=== PATIENT | female | born 1950 | race Caucasian/White ===

== ENCOUNTER 2020-04-28 17:20 | Outpatient (CLI) | payer MEDICARE | END 2020-04-28 23:59 | disposition home or self-care (01) | LOC: LAB SPEC 17:20 | PROVIDERS: ATTEND Specialist | DX: I72.0 Aneurysm of carotid artery (principal); Z53.21 Procedure and treatment not carried out due to patient leaving prior to being seen by health care provider ==

== ENCOUNTER 2022-09-02 08:44 | Inpatient (IN) | payer MEDICARE ==
[2022-09-02] VITALS (21 sets, daily range): BP systolic 95–137; BP diastolic 56–110
[~2022-09-02] VITALS: Ht 154.9 cm; Wt 68.9 kg
[~2022-09-02 08:44] MED LIST: BUPIVAcaine/PF 2.5 mg/ml (0.25%) 30ml vial ONE; CHOL20004 PO; DULO60CA65 PO; ESOM40CA49 PO; LIDOcaine 1% 30ml preserv. free vial ONE; RAMI5CAP65 PO; ceFAZolin inj. 2,000 MG in dextrose 5%-water 100 ML IV ONE; famotidine 20mg tablet PO ONE
[2022-09-02] MEDS: ringers solution, lacted 1,000 ML IV SCH ×3 (11:43→18:23)
[2022-09-02] MEDS ORDERED: ondansetron/PF 4mg/2ml inj ONE (13:09)
[2022-09-02] MEDS ORDERED: glycopyrrolate 0.2mg/ml inj ONE (13:09)
[2022-09-02] MEDS ORDERED: dexamethasone sod phosphate 10mg/ml inj ONE (13:09)
[2022-09-02] MEDS ORDERED: neostigmine methylsulfate 1 MG/ML 10ml vial ONE (13:09)
[2022-09-02] MEDS ORDERED: sevoflurane 250ml liquid IH ONE (13:09)
[2022-09-02] MEDS ORDERED: midazolam 1 mg/ML 2ml injection ONE (13:20)
[2022-09-02] MEDS ORDERED: fentaNYL /PF 50mcg/ml 5ml ampule ONE (13:20)
[2022-09-02] MEDS ORDERED: propofol inj 20 ML IV ONE (13:59)
[2022-09-02] MEDS ORDERED: LIDOcaine 2% (20mg/ml) 5ml vial ONE (13:59)
[2022-09-02] MEDS ORDERED: rocuronium 10mg/ml inj IV ONE (13:59)
[2022-09-02] MEDS ORDERED: sod chloride 0.9% 10ml flush syringe IV ONE (13:59)
[2022-09-02] MEDS ORDERED: ePHEDrine 50MG/ML INJ. ONE (14:00)
[2022-09-02] MEDS ORDERED: sugammadex 200mg/2ml injection IV ONE (15:38)
[2022-09-02] MEDS ORDERED: ondansetron/PF 4mg/2ml inj IV PRN ×2 (15:55→16:45)
[2022-09-02] MEDS ORDERED: naloxone 0.4 mg/ml inj IV PRN (15:55)
--- NOTE | 2022-09-02 15:56 | NUR ---
Received from OR via , accompanied by Anesthesiologist MARVIN and OR NURSE report given by Anesthesiolgist. PT HAS ARTIFICIAL AIRWAY IN WITH OUT VENT; ON COLTON AT 15 LPM. PT IS DROWSY BUT RESPONDS TO VERBAL STIMULI. DENIES PAIN OR DISCOMFORT. HIMA IN PLACE AND PATENT. 3 LAP SITES WITH DERMABOND.SCD'S IN PLACE. Addendum: 09/02/22 at 1614 by Lavern Smyth RN Amended: Links added.
[2022-09-02] MEDS ORDERED: meperidine/PF 25mg/ml syringe IV ONE (16:20)
[2022-09-02] MEDS ORDERED: proCHLORperazine 10 MG/2 ml inj IV PRN (16:45)
[2022-09-02] MEDS ORDERED: morphine 4 MG/ML inj SYRINge IV PRN (16:45)
[2022-09-02] MEDS ORDERED: hydrALAZINE 20mg/ml inj. IV PRN (16:45)
[2022-09-02] MEDS ORDERED: meperidine/PF 25mg/ml syringe IV PRN (16:45)
[2022-09-02] MEDS ORDERED: labetalol 20mg/4ml (5mg/ml) syringe IV PRN (16:45)
[2022-09-02] MEDS ORDERED: ketorolac tromethamine 15mg/ml inj. IV ONE (16:45)
[2022-09-02] MEDS ORDERED: morphine 2 MG/ML inj. syringe IV PRN (16:45)
[2022-09-02] MEDS ORDERED: HYDROmorphone/PF 0.2 MG/ML SYRINGE IV PRN ×2 (16:45)
[2022-09-02] MEDS ORDERED: ringers solution, lacted 1,000 ML IV SCH (16:45)
[2022-09-02] MEDS: HYDROmorph/NS 0.2 mg/ml PCA 100 ML IV SCH ×5 (17:00→23:00)
--- NOTE | 2022-09-02 17:56 | NUR ---
Report called to receiving nurse. Transferred via bed. walker and 2 Belongings bags sent with pt to room. CAD PUMP WITH DILAUDID AND A 10 MINUTE LOCKOUT SET UP AND SENT WITH PT. SHANIQUA HOLBROOK . Special Issues communicated to receiving nurse. Addendum: 09/02/22 at 1813 by Lavern mSyth RN Amended: Links added.
[2022-09-02] MEDS: potassium CL 20mEq in D5-1/2NS 1,000 ML IV SCH ×2 (18:23→23:55)
[2022-09-02 19:40] LABS: BASOPHILS # (AUTO) 0.2 X10'3 (0-0.2); BASOPHILS % (AUTO) 1.6 % (0-1); EOSINOPHILS % (AUTO) 0 % (0-6); HEMATOCRIT 40.8 % (35.0-45.0); HEMOGLOBIN 13.5 g/dl (12.0-16.0); LYMPHOCYTES # (AUTO) 0.5 X10'3 (1.1-4.8); LYMPHOCYTES % (AUTO) 4.5 % (21-51); MEAN CORPUSCULAR HEMOGLOBIN 29.5 PG (27.0-31.0); MEAN CORPUSCULAR VOLUME 89.4 FL (78-98); MEAN PLATELET VOLUME 9.2 FL (7.4-10.4); MONOCYTES # (AUTO) 0.4 X10'3 (0-0.9); MONOCYTES % (AUTO) 3.5 % (2-12); NEUTROPHILS # (AUTO) 9.8 X10'3 (1.8-7.7); NEUTROPHILS % (AUTO) 90.4 % (42-75); PLATELET COUNT 182 X10'3 (140-440); RED BLOOD COUNT 4.56 X10'6 (4.20-5.60); RED CELL DISTRIBUTION WIDTH 13.8 % (11.5-14.5); WHITE BLOOD COUNT 10.8 X10'3 (4.5-11.0)
[2022-09-02 19:51] LABS: ALANINE AMINOTRANSFERASE 40 U/L (12-78); ALBUMIN/GLOBULIN RATIO 0.8 (1.1-1.5); ALKALINE PHOSPHATASE 94 IU/L (46-116); ANION GAP 12 (8-16); ASPARTATE AMINO TRANSFERASE 49 U/L (10-37); BILIRUBIN,TOTAL 0.3 MG/DL (0.1-1.0); BLOOD UREA NITROGEN 20 MG/DL (7-18); BUN/CREATININE RATIO 15.9 (6.6-38.0); CALCIUM 8.8 MG/DL (8.5-10.1); CHLORIDE 105 MMOL/L (99-107); CREATININE 1.26 MG/DL (0.40-0.90); GLUCOSE 167 MG/DL (70-104); POTASSIUM 4.3 MMOL/L (3.5-5.1); SODIUM 138 MMOL/L (135-145); TOTAL CARBON DIOXIDE 21.4 MMOL/L (24-32); TOTAL PROTEIN 6.6 G/DL (6.4-8.2); eGFR 42 ML/MIN
[2022-09-03] MEDS: HYDROmorph/NS 0.2 mg/ml PCA 100 ML IV SCH ×4 (01:00→07:00)
[2022-09-03 02:02] VITALS: BP 92/59
[2022-09-03] MEDS: potassium CL 20mEq in D5-1/2NS 1,000 ML IV SCH ×2 (05:16→07:54)
--- NOTE | 2022-09-03 05:57 | NUR ---
Problems reprioritized. Patient report given, questions answered & plan of care reviewed with NAYELY Lauren.
--- NOTE | 2022-09-03 06:13 | NUR ---
Patient in room [facility]. I have received report from NAYELY CASTREJON and had the opportunity to ask questions and assume patient care.
[2022-09-03 06:26] VITALS: BP 99/51
[2022-09-03 06:37] LABS: ALBUMIN 2.9 G/DL (3.4-5.0); ANION GAP 7 (8-16); BLOOD UREA NITROGEN 23 MG/DL (7-18); BUN/CREATININE RATIO 19.3 (6.6-38.0); CALCIUM 8.7 MG/DL (8.5-10.1); CHLORIDE 105 MMOL/L (99-107); CREATININE 1.19 MG/DL (0.40-0.90); GLUCOSE 140 MG/DL (70-104); POTASSIUM 4.9 MMOL/L (3.5-5.1); SODIUM 136 MMOL/L (135-145); TOTAL CARBON DIOXIDE 23.6 MMOL/L (24-32); eGFR 44 ML/MIN
[2022-09-03 06:41] LABS: BASOPHILS % (AUTO) 0.2 % (0-1); EOSINOPHILS % (AUTO) 0 % (0-6); HEMATOCRIT 39.2 % (35.0-45.0); HEMOGLOBIN 12.9 g/dl (12.0-16.0); LYMPHOCYTES # (AUTO) 0.7 X10'3 (1.1-4.8); LYMPHOCYTES % (AUTO) 7.8 % (21-51); MEAN CORPUSCULAR HEMOGLOBIN 29.1 PG (27.0-31.0); MEAN CORPUSCULAR HGB CONC 32.9 g/dL (33.0-36.5); MEAN CORPUSCULAR VOLUME 88.6 FL (78-98); MEAN PLATELET VOLUME 9.3 FL (7.4-10.4); MONOCYTES # (AUTO) 0.4 X10'3 (0-0.9); MONOCYTES % (AUTO) 4.5 % (2-12); NEUTROPHILS # (AUTO) 8.3 X10'3 (1.8-7.7); NEUTROPHILS % (AUTO) 87.5 % (42-75); PLATELET COUNT 203 X10'3 (140-440); RED BLOOD COUNT 4.43 X10'6 (4.20-5.60); RED CELL DISTRIBUTION WIDTH 13.9 % (11.5-14.5); WHITE BLOOD COUNT 9.5 X10'3 (4.5-11.0)
[2022-09-03] MEDS ORDERED: enoxaparin 40mg/0.4ml syringe SQ SCH (08:00)
[2022-09-03] MEDS ORDERED: lisinopril 10 MG tablet PO SCH (08:00)
[2022-09-03] MEDS ORDERED: duloxetine 30mg CAPSULE.DR PO SCH (08:00)
[2022-09-03] MEDS ORDERED: acetaminophen 325mg tablet PO PRN (08:40)
[2022-09-03] MEDS ORDERED: ACET-1008 PO (08:41)
[2022-09-03] MEDS ORDERED: acetaminophen 325mg tablet PO ONE (08:45)
[2022-09-03] MEDS ORDERED: CADD PCA waste documentation MC SCH (10:00)
--- NOTE | 2022-09-03 10:49 | NUR ---
Ashley consult: Pt s/p Ashley fundoplication this admit per EMR. Pt seen by RD for thorough written/verbal post-Ashley diet ed w/ RD contact information and Ensure ONS coupon provided. Pt reports has full liquid meals prepared at home, takes routine MVI coverage, and is open to trying ONS to assist nutrient intake while on full liquid restrictions. RD encouraged pt to contact dietitian's office if further questions/concerns. Addendum: 09/03/22 at [address] Amended: Links added.
[2022-09-03 12:45] VITALS: BP 110/75
--- NOTE | 2022-09-03 14:39 | NUR ---
Called to notify Dr. Short that patient has not voided s/p carlson catheter removal at 1000. Bladder scan shows 30ml. Dr. Short states ok to still dc as patient's transport is here. Encouraged patient po intake. Addendum: 09/03/22 at 1503 by Xin Wallis RN Dr. Short also stated that although his dc instructions states to continue Nexium, let patient know to not take her PPI nexium "for a couple of weeks"
--- NOTE | 2022-09-03 14:56 | NUR ---
Patient alert and oriented with no complaints. Discussed with patient discharge instructions including Dr. Short's instruction to disregard dc instructions to continue Nexium therefore DO NOT take her PPI nexium "for a couple of weeks" Patient verbalizes understanding of teaching. Patient dc'd with all personal belongings escorted out in wheelchair accompanied by LACI Ladd. Patient's friend in lobby to transport patient home.
--- NOTE | 2022-09-03 15:03 | NUR ---
Patient's IV was dc'd with no issues.
== END 2022-09-03 14:45 | disposition home or self-care (01) | DRG 328 ==
LOC: PAS 08:44 → PAS IN 15:58 → SUR 3N 17:56
PROVIDERS: ADMIT Surgery; ATTEND Surgery
PROC: 0DV44ZZ Restriction of Esophagogastric Junction, Percutaneous Endoscopic Approach (ICD-10-PCS; 2022-09-02)
PROC: 8E0W4CZ Robotic Assisted Procedure of Trunk Region, Percutaneous Endoscopic Approach (ICD-10-PCS; 2022-09-02)
PROC: 0BUT4JZ Supplement Diaphragm with Synthetic Substitute, Percutaneous Endoscopic Approach (ICD-10-PCS; principal; 2022-09-02 13:09)
DX: K44.9 Diaphragmatic hernia without obstruction or gangrene (principal); Z79.899 Other long term (current) drug therapy
CPT/HCPCS: 36415; 71045; 80048; 80053; 82948; 85025; 93005; A4618; A6213; C1758; C1781; G0378; J0690; J1100; J1170; J1650; J1885; J2175; J2250; J2405; J2704; J2710; J3010; J3480; J3490; J7060; J7120